=== PATIENT | female | born 1990 | race American Indian/Alaskan Native ===

== ENCOUNTER 2018-05-06 16:28 | Emergency (ER) | payer MEDICAID ==
[~2018-05-06] VITALS: Ht 177.8 cm; Wt 56.4 kg
[~2018-05-06 16:28] MED LIST: DIAZ-351 PO; IBUP-1986 PO; ONDA4TAB12 PO
[2018-05-06 20:11] LABS: BASOPHILS % (AUTO) 0.4 % (0-1); EOSINOPHILS # (AUTO) 0.4 X10'3 (0-0.9); EOSINOPHILS % (AUTO) 3.8 % (0-6); HEMATOCRIT 38.5 % (35.0-45.0); HEMOGLOBIN 12.8 g/dl (12.0-16.0); LYMPHOCYTES # (AUTO) 1.2 X10'3 (1.1-4.8); MEAN CORPUSCULAR HEMOGLOBIN 29.2 PG (27.0-31.0); MEAN CORPUSCULAR HGB CONC 33.3 g/dL (33.0-36.5); MEAN CORPUSCULAR VOLUME 87.8 FL (78-98); MEAN PLATELET VOLUME 8.7 FL (7.4-10.4); MONOCYTES # (AUTO) 0.7 X10'3 (0-0.9); MONOCYTES % (AUTO) 7.4 % (2-12); NEUTROPHILS # (AUTO) 7.5 X10'3 (1.8-7.7); NEUTROPHILS % (AUTO) 76.4 % (42-75); PLATELET COUNT 212 X10'3 (140-440); RED BLOOD COUNT 4.39 X10'6 (4.20-5.60); RED CELL DISTRIBUTION WIDTH 15.4 % (11.5-14.5); WHITE BLOOD COUNT 9.9 X10'3 (4.5-11.0)
[2018-05-06] MEDS ORDERED: NAPR-56 PO (20:32)
[2018-05-06] MEDS ORDERED: SULF1TAB49 PO (20:32)
[2018-05-06] MEDS ORDERED: HYDROcodone/acetaminophen 10/325mg tab PO ONE (20:35)
[2018-05-06] MEDS ORDERED: clindamycin phosphate 150mg/ml inj. IM ONE (20:35)
[2018-05-06 20:57] VITALS: BP 113/77
== END 2018-05-06 20:59 | disposition home or self-care (01) ==
LOC: ER 16:29
DX: L03.011 Cellulitis of right finger (principal); M79.641 Pain in right hand; G89.29 Other chronic pain; E03.9 Hypothyroidism, unspecified; F12.90 Cannabis use, unspecified, uncomplicated; F15.90 Other stimulant use, unspecified, uncomplicated
CPT/HCPCS: 36415; 85025; 86140; 96372; 99283; J3490

== ENCOUNTER 2021-05-27 17:29 | Emergency (ER) | payer MEDICAID, OTHER ==
[~2021-05-27] VITALS: Ht 177.8 cm; Wt 63.6 kg
[2021-05-27] MEDS ORDERED: normal saline 1000ML IV soln IVB ONE (18:00)
[2021-05-27] MEDS ORDERED: ondansetron/PF 4mg/2ml inj IV ONE (18:00)
[2021-05-27 18:01] VITALS: BP 109/63
[2021-05-27 18:14] LABS: URINE HCG POSITIVE (NEG)
[2021-05-27 18:22] LABS: CLARITY,URINE SLIGHTLY CLOUDY (Clear); COLOR,URINE YELLOW (Yellow); GLUCOSE, URINE NEGATIVE (Neg); KETONES,URINE NEGATIVE (Neg); LEUKOCYTE ESTERASE ,URINE LARGE (Neg); NITRITES, URINE POSITIVE (Neg); OCCULT BLOOD,URINE TRACE-INTACT (Neg); PH,URINE 6.5 (4.8-8.0); PROTEIN,URINE NEGATIVE (Neg); UROBILINOGEN,URINE 0.2 E.U/dL (0.2-1.0)
--- NOTE | 2021-05-27 18:22 | NUR ---
PT TO XRAY
[2021-05-27] MEDS ORDERED: morphine 4 MG/ML inj SYRINge IV ONE (18:25)
[2021-05-27 18:26] LABS: BASOPHILS % (AUTO) 0.3 % (0-1); EOSINOPHILS # (AUTO) 0.2 X10'3 (0-0.9); EOSINOPHILS % (AUTO) 1.8 % (0-6); HEMATOCRIT 39.1 % (35.0-45.0); HEMOGLOBIN 12.6 g/dl (12.0-16.0); LYMPHOCYTES # (AUTO) 2.1 X10'3 (1.1-4.8); LYMPHOCYTES % (AUTO) 19.8 % (21-51); MEAN CORPUSCULAR HEMOGLOBIN 26.1 PG (27.0-31.0); MEAN CORPUSCULAR HGB CONC 32.2 g/dL (33.0-36.5); MEAN CORPUSCULAR VOLUME 81.2 FL (78-98); MEAN PLATELET VOLUME 8.7 FL (7.4-10.4); MONOCYTES # (AUTO) 0.7 X10'3 (0-0.9); MONOCYTES % (AUTO) 6.3 % (2-12); NEUTROPHILS # (AUTO) 7.8 X10'3 (1.8-7.7); NEUTROPHILS % (AUTO) 71.8 % (42-75); PLATELET COUNT 246 X10'3 (140-440); RED BLOOD COUNT 4.82 X10'6 (4.20-5.60); RED CELL DISTRIBUTION WIDTH 19.9 % (11.5-14.5); WHITE BLOOD COUNT 10.8 X10'3 (4.5-11.0)
[2021-05-27 18:33] LABS: UA COLLECTION TYPE CLN CATCH MIDSTREAM
[2021-05-27 18:38] LABS: ALANINE AMINOTRANSFERASE 32 U/L (12-78); ALBUMIN 3.8 G/DL (3.4-5.0); ALBUMIN/GLOBULIN RATIO 0.9 (1.1-1.5); ALKALINE PHOSPHATASE 79 IU/L (46-116); ANION GAP 4 (8-16); ASPARTATE AMINO TRANSFERASE 18 U/L (10-37); BILIRUBIN,TOTAL 0.2 MG/DL (0.1-1.0); BLOOD UREA NITROGEN 11 MG/DL (7-18); BUN/CREATININE RATIO 16.2 (6.6-38.0); CALCIUM 9.1 MG/DL (8.5-10.1); CHLORIDE 101 MMOL/L (99-107); CREATININE 0.68 MG/DL (0.40-0.90); GLUCOSE 79 MG/DL (70-104); POTASSIUM 3.8 MMOL/L (3.5-5.1); SODIUM 132 MMOL/L (135-145); TOTAL CARBON DIOXIDE 27.3 MMOL/L (24-32); TOTAL PROTEIN 7.9 G/DL (6.4-8.2); eGFR > 90 ML/MIN
[2021-05-27 18:40] LABS: WBC,URINE 20-30 /HPF (0-4)
[2021-05-27 18:41] LABS: BACTERIA,URINE 3+ /HPF (Neg); SQUAMOUS EPITHELIAL CELL,UR MODERATE /LPF (FEW)
[2021-05-27 18:42] LABS: MUCUS STRANDS NONE SEEN /LPF (Neg); TRICHOMONAS,URINE FEW /HPF (NEGATIVE)
[2021-05-27 19:37] LABS: ANISOCYTOSIS 2+; PLATELET ESTIMATE NORMAL
[2021-05-27 19:49] LABS: BETA HCG,QUANTITATIVE 35881 mIU/ml
[2021-05-27] MEDS ORDERED: metroNIDAZOLE 500mg tablet PO ONE (20:30)
[2021-05-27] MEDS ORDERED: METR-159 PO (22:54)
[2021-05-27] MEDS ORDERED: DOCU-148 PO (22:54)
--- NOTE | 2021-05-27 22:59 | NUR ---
Pt given soap suds enema per md order. Pt had large stool output afterwards.
== END 2021-05-28 00:13 ==
LOC: ER 17:29 → EEVIPCON 17:29 → ER 05-28 00:13
DX: O98.511 Other viral diseases complicating pregnancy, first trimester (principal); U07.1 COVID-19; O99.611 Diseases of the digestive system complicating pregnancy, first trimester; K59.00 Constipation, unspecified; O98.311 Other infections with a predominantly sexual mode of transmission complicating pregnancy, first trimester; A59.9 Trichomoniasis, unspecified; O99.281 Endocrine, nutritional and metabolic diseases complicating pregnancy, first trimester; E05.00 Thyrotoxicosis with diffuse goiter without thyrotoxic crisis or storm; G89.29 Other chronic pain; O99.321 Drug use complicating pregnancy, first trimester; F12.90 Cannabis use, unspecified, uncomplicated; F15.90 Other stimulant use, unspecified, uncomplicated; Z3A.01 Less than 8 weeks gestation of pregnancy; Z79.899 Other long term (current) drug therapy
CPT/HCPCS: 36415; 74018; 76801; 80053; 81001; 81025; 83605; 84145; 84702; 85008; 85025; 87635; 96361; 96374; 96375; 99285; C9803; J2270; J2405; J7030

== ENCOUNTER 2021-06-12 18:30 | Emergency (ER) | payer OTHER ==
[~2021-06-12] VITALS: Ht 177.8 cm; Wt 83.2 kg
[~2021-06-12 18:30] MED LIST changes: +DOCU-148 PO
[2021-06-12 20:08] LABS: BASOPHILS % (AUTO) 0.3 % (0-1); EOSINOPHILS # (AUTO) 0.2 X10'3 (0-0.9); EOSINOPHILS % (AUTO) 2.2 % (0-6); HEMATOCRIT 31.3 % (35.0-45.0); HEMOGLOBIN 10.4 g/dl (12.0-16.0); LYMPHOCYTES # (AUTO) 1.6 X10'3 (1.1-4.8); LYMPHOCYTES % (AUTO) 15.8 % (21-51); MEAN CORPUSCULAR HEMOGLOBIN 27.4 PG (27.0-31.0); MEAN CORPUSCULAR HGB CONC 33.3 g/dL (33.0-36.5); MEAN CORPUSCULAR VOLUME 82.5 FL (78-98); MEAN PLATELET VOLUME 7.8 FL (7.4-10.4); MONOCYTES # (AUTO) 0.8 X10'3 (0-0.9); MONOCYTES % (AUTO) 8.1 % (2-12); NEUTROPHILS # (AUTO) 7.3 X10'3 (1.8-7.7); NEUTROPHILS % (AUTO) 73.6 % (42-75); PLATELET COUNT 213 X10'3 (140-440); RED CELL DISTRIBUTION WIDTH 21.7 % (11.5-14.5); WHITE BLOOD COUNT 9.9 X10'3 (4.5-11.0)
[2021-06-12] MEDS ORDERED: mineral oil 133ml enema RC PRN (20:10)
[2021-06-12 20:17] LABS: ALANINE AMINOTRANSFERASE 26 U/L (12-78); ALBUMIN 3.3 G/DL (3.4-5.0); ALKALINE PHOSPHATASE 55 IU/L (46-116); ANION GAP 7 (8-16); ASPARTATE AMINO TRANSFERASE 14 U/L (10-37); BILIRUBIN,TOTAL 0.3 MG/DL (0.1-1.0); BLOOD UREA NITROGEN 8 MG/DL (7-18); BUN/CREATININE RATIO 14.5 (6.6-38.0); CALCIUM 8.9 MG/DL (8.5-10.1); CHLORIDE 107 MMOL/L (99-107); CREATININE 0.55 MG/DL (0.40-0.90); GLUCOSE 90 MG/DL (70-104); POTASSIUM 3.9 MMOL/L (3.5-5.1); SODIUM 145 MMOL/L (135-145); TOTAL CARBON DIOXIDE 30.6 MMOL/L (24-32); TOTAL PROTEIN 6.5 G/DL (6.4-8.2); eGFR > 90 ML/MIN
[2021-06-12 20:45] LABS: ANISOCYTOSIS 2+; PLATELET ESTIMATE NORMAL
[2021-06-12 20:49] LABS: ELLIPTOCYTES FEW; LARGE PLATELETS FEW; TEAR DROP CELLS FEW
--- NOTE | 2021-06-12 20:58 | NUR ---
CHECKED HEART TONES WITH ER DOPPLER. UNABLE TO FIND TONES. PT STATES SHE IS 6 WEEKS . AYDE MONTIEL, AWARE.
[2021-06-12] MEDS ORDERED: polyethylene glycol 3350 17gm powd pack PO SCH (21:00)
[2021-06-12 21:46] LABS: BETA HCG,QUANTITATIVE 90601 mIU/ml
--- NOTE | 2021-06-12 22:08 | NUR ---
US AT BEDSIDE
[2021-06-12 22:31] VITALS: BP 107/73
== END 2021-06-12 22:38 | disposition home or self-care (01) ==
LOC: ER 18:31
DX: O26.891 Other specified pregnancy related conditions, first trimester (principal); K59.00 Constipation, unspecified; R10.84 Generalized abdominal pain; R11.10 Vomiting, unspecified; E03.9 Hypothyroidism, unspecified; G89.29 Other chronic pain; F12.90 Cannabis use, unspecified, uncomplicated; F15.90 Other stimulant use, unspecified, uncomplicated; Z3A.08 8 weeks gestation of pregnancy; Z79.899 Other long term (current) drug therapy
CPT/HCPCS: 36415; 76801; 80053; 84702; 85008; 85025; 99284

== ENCOUNTER 2021-12-22 09:21 | Emergency (ER) | payer MEDICAID, OTHER ==
[~2021-12-22] VITALS: Ht 177.8 cm; Wt 102.7 kg
[2021-12-22 09:41] VITALS: BP 112/58
[2021-12-22] MEDS ORDERED: acetaminophen w/codeine (30MG) #3 tablet PO ONE (11:20)
[2021-12-22] MEDS ORDERED: clindamycin 150mg capsule PO ONE (11:20)
[2021-12-22] MEDS ORDERED: CLIN-97 PO (11:25)
== END 2021-12-22 11:46 | disposition home or self-care (01) ==
LOC: ER 09:21
DX: O26.893 Other specified pregnancy related conditions, third trimester (principal); Z3A.37 37 weeks gestation of pregnancy; E03.9 Hypothyroidism, unspecified; G89.29 Other chronic pain; F17.200 Nicotine dependence, unspecified, uncomplicated; F12.90 Cannabis use, unspecified, uncomplicated; F15.20 Other stimulant dependence, uncomplicated
CPT/HCPCS: 99283